=== PATIENT | male | born 1955 | race Hispanic/Latino ===

== ENCOUNTER 2024-02-17 21:41 | Observation (INO) | payer OTHER ==
[~2024-02-17] VITALS: Ht 180.3 cm; Wt 84.6 kg
[2024-02-17 23:12] LABS: BASOPHILS # (AUTO) 0.01 K/uL (0.00-0.20); BASOPHILS % (AUTO) 0.2 % (0.0-5.0); EOSINOPHILS # (AUTO) 0.24 K/uL (0.00-0.70); EOSINOPHILS % (AUTO) 3.9 % (0.0-8.0); HEMATOCRIT 39.5 % (42-54); IMMATURE GRANULOCYTE ABSOLUTE 0.01 K/uL (0-1); LYMPHOCYTES # (AUTO) 2.2 K/uL (1.0-4.8); LYMPHOCYTES % (AUTO) 36.3 % (21.0-51.0); MEAN CORPUSCULAR HEMOGLOBIN 30.6 pg (27.0-33.0); MEAN CORPUSCULAR HGB CONC 34.7 g/dL (32.0-36.0); MEAN CORPUSCULAR VOLUME 88.2 fL (79-99); MONOCYTES # (AUTO) 0.7 K/uL (0.1-1.0); MONOCYTES % (AUTO) 10.6 % (3.0-13.0); NEUTROPHILS % (AUTO) 48.8 % (40.0-77.0); PLATELET COUNT (AUTO) 261 K/uL (130-400); RED BLOOD CELL COUNT(AUTO) 4.48 MIL/uL (4.50-6.20); RED CELL DISTRIBUTION WIDTH 12.4 % (11.0-15.5); WHITE BLOOD COUNT (AUTO) 6.2 K/uL (4.8-10.8)
--- NOTE | 2024-02-17 23:24 | ERN ---
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 Apparently he was in [place] and as he was driving he looked up at the light in the truck after which he began developing severe dizziness to the point of near syncope that lasted for the next few days. He called his and with the extreme difficulty some home [address] [place] again. He was still can continuing to have symptoms and hence he came to the ER for further evaluation Temperature 98 pulse 79 respirations 20 blood pressure 150/79 with a pulse oximetry of 98% on room air Allergies: Coded Allergies: No Known Allergies (Unverified Allergy, Unknown, 02/17/24) Past Medical History Past Medical History: No Pertinent History Surgical History: None Social History: Smokers, ETOH RN Note Reviewed/Agreed w/PFSH: Yes Review of System Dictation Constitutional: Negative for fever,chills, and weight loss Eyes: Negative for injury, pain,redness, and discharge ENT: Negative for injury,pain or swelling Cardiovascular: Negative for chest pain, palpitations, and edema severe dizziness and near-syncope Respiratory: Negative for shortness of breath, cough, and wheezing, Abdomen/GI: Negative for abdominal pain, nausea, vomiting, diarrhea, and constipation Back: Negative for injury and pain : Negative for injury, bleeding and discharge MS/Extremity: Negative for injury and deformity Skin: Negative for rash, and discoloration Neuro: Negative for headache, weakness, numbness, tingling, and seizure Psych: Negative for suicide ideation, homicidal ideation, and hallucinations Initial Vital Sign VS Vital Signs Date Time Temp Pulse Resp B/P (MAP) Pulse Ox O2 Delivery O2 Flow Rate FiO2 02/17/24 21:43 98.1 79 20 150/79 98 Room Air 02/17/24 22:23 0 21 Physical Exam Dictation General: awake, alert, NAD thin male not in any distress Head/Face: Normocephalic, atraumatic Eyes: PERRL, EOMI, vision at baseline ENT: oral cavity clear, TMs clear, no signs of infection Neck: Trachea midline, supple, no nuchal rigidity I did not appreciate any carotid murmurs or bruits Cardiovascular: RRR, normal S1/S2, No MRGs, no JVD Respiratory: CTAB, no respiratory distress, No rales or wheezes Abdomen: Soft, non-tender, non-distended, normal bowel sounds, no guarding or rebound. Skin: Warm, dry, normal turgor, no rash MS/Extremity: Pulses equal, no cyanosis, neurovascular intact, FROM Neuro: COAx4, GCS 15, strength 5/5, CN 2-12 intact, normal cerebellar exam, normal gait, Psych: Normal behavior, mood, and affect normal Extremities-trace edema without any palpable cords, Homans sign is negative Results (Laboratory/Radiology) Laboratory/Radiology Laboratory Tests Test 02/17/24 23:04 02/18/24 04:45 White Blood Count 6.2 K/uL (4.8-10.8) Red Blood Count 4.48 MIL/uL (4.50-6.20) L Hemoglobin 13.7 g/dL (14.0-18.0) L Hematocrit 39.5 % (42-54) L Mean Corpuscular Volume 88.2 fL (79-99) Mean Corpuscular Hemoglobin 30.6 pg (27.0-33.0) Mean Corpuscular Hemoglobin Concent 34.7 g/dL (32.0-36.0) Red Cell Distribution Width 12.4 % (11.0-15.5) Platelet Count 261 K/uL (130-400) Mean Platelet Volume 8.9 fL (7.5-10.5) Immature Granulocyte % (Auto) 0.2 % (0-1) Neutrophils (%) (Auto) 48.8 % (40.0-77.0) Lymphocytes (%) (Auto) 36.3 % (21.0-51.0) Monocytes (%) (Auto) 10.6 % (3.0-13.0) Eosinophils (%) (Auto) 3.9 % (0.0-8.0) Basophils (%) (Auto) 0.2 % (0.0-5.0) Neutrophils # (Auto) 3.0 K/uL (1.8-7.7) Lymphocytes # (Auto) 2.2 K/uL (1.0-4.8) Monocytes # (Auto) 0.7 K/uL (0.1-1.0) Eosinophils # (Auto) 0.24 K/uL (0.00-0.70) Basophils # (Auto) 0.01 K/uL (0.00-0.20) Absolute Immature Granulocyte (auto 0.01 K/uL (0-1) Nucleated Red Blood Cells 0.0 % (0.0-0.19) Sodium Level 145 mmol/L (136-145) Potassium Level 3.5 mmol/L (3.5-5.1) Chloride Level 106 mmol/L (101-111) Carbon Dioxide Level 33 mmol/L (21-32) H Blood Urea Nitrogen 12 mg/dL (7-18) Creatinine 1.0 mg/dL (0.5-1.3) Glomerular Filtration Rate Calc 83 mL/min (>90) Random Glucose 105 mg/dL (70-105) Total Calcium 8.8 mg/dL (8.5-10.1) Troponin I High Sensitivity 6 ng/L (4-75) Urine Color LIGHT-YELLOW (YELLOW) Urine Appearance CLEAR (CLEAR) Urine pH 6.5 (5.0-8.0) Urine Specific Sulphur 1.015 (1.001-1.031) Urine Protein NEGATIVE mg/dL (NEGATIVE) Urine Glucose (UA) NEGATIVE mg/dL (NEGATIVE) Urine Ketones NEGATIVE mg/dL (NEGATIVE) Urine Occult Blood NEGATIVE (NEGATIVE) Urine Nitrate NEGATIVE (NEGATIVE) Urine Bilirubin NEGATIVE mg/dL (NEGATIVE) Urine Urobilinogen 0.2 mg/dL (0.2-1.0) Urine Leukocyte Esterase NEGATIVE Balwinder/uL Urine Opiates Screen NEGATIVE (NEGATIVE) Urine Barbiturates Screen NEGATIVE (NEGATIVE) Urine Phencyclidine Screen NEGATIVE (NEGATIVE) Urine Amphetamines Screen NEGATIVE (NEGATIVE) Urine Benzodiazepines Screen NEGATIVE (NEGATIVE) Urine Cocaine Screen NEGATIVE (NEGATIVE) Urine Marijuana (THC) Screen NEGATIVE (NEGATIVE) Influenza Type A Antigen Negative For Type A Influenza Type B Antigen Negative For Type B SARS-CoV-2, RNA, NAAT NEGATIVE SARS CoV-2 Labs Reviewed?: Yes CT Scan Comment: PATIENT: ARIELLE MONTOYA MR#: [id number] : 1955 SEX: M AGE: 68 LOCATION: [facility] ORDER [id number] STATUS: REG REPORT#: [id number] SERVICE REASON: Severe dizziness near syncope ORDERING PHYSICIAN: HARRISON PAIGE MD PROCEDURE: HEAD WO - CT HEAD/BRAIN W/O CONTRAST CT HEAD/BRAIN W/O CONTRAST HISTORY: Near syncope COMPARISON: None TECHNIQUE: Multiple sequential axial images of the head were obtained from the base of the skull through vertex. Patient was not given contrast through intravenous route. FINDINGS: The ventricles and extraventricular CSF spaces are dilated consistent with cerebral atrophy. Nonspecific white matter changes seen. There is no midline shift, mass effect or herniation. No acute intracranial bleed is seen. There are bilateral maxillary sinusitis with mucoperiosteal thickening. IMPRESSION: 1. No acute intracranial bleed is seen. 2. Atrophy with white matter changes. CT was performed with one or more following dose reduction techniques: automated exposure control, adjustment of the mA and kv according to patient's size, or use of a iterative reconstruction technique. DICTATED BY: QI CAPPS MD DATE: 02/17/242336 ELECTRONICALLY SIGNED BY: QI CAPPS MD DATE: 02/17/24 234 ED Course ED Course Orders Procedure Category Date Status Time Cbc With Differential LAB 02/17/24 Complete 22:45 Basic Metabolic Panel LAB 02/17/24 Complete 22:45 12 Lead Ekg Tracing- EKG 02/17/24 Logged Technical 22:45 Troponin I High LAB 02/17/24 Complete Sensitivity 22:45 Chest 1vw RAD 02/17/24 Taken 23:17 Ct Head/Brain W/O CT 02/17/24 Resulted Contrast 23:17 Admit Orders ADM 02/18/24 Transmitted 01:27 Edm Admit Bridge Order ADM 02/18/24 Transmitted 01:27 Admit Orders ADM 02/18/24 Transmitted 01:27 Urinalysis Profile LAB 02/18/24 Complete 02:14 Influenza Type A & B, LAB 02/18/24 Complete Rapid 02:14 Covid Rna Naat LAB 02/18/24 Complete 02:14 Drug Screen Urine LAB 02/18/24 Complete 02:14 Vital Signs Every 4 CPOE 02/18/24 Transmitted Hours 02:20 I&O Q Shift CPOE 02/18/24 Transmitted 02:20 Activity: Ambulate W/ CPOE 02/18/24 Transmitted Assist 02:20 Heart Healthy Diet DIET 02/18/24 Transmitted Breakfast O2 Order RT 02/18/24 Transmitted 02:20 Cbc Without LAB 02/19/24 Verified Differential 04:00 Basic Metabolic Panel LAB 02/19/24 Verified 04:00 Magnesium LAB 02/19/24 Verified 04:00 Phosphorus LAB 02/19/24 Verified 04:00 Echo 2-D Complete ECHO 02/18/24 Logged 02:20 Pantoprazole 40mg Tab PHA 02/18/24 In Process (Protonix 40mg Tab 09:00 Enoxaparin Sodium 40 PHA 02/18/24 In Process Mg/0.4 Ml (Lovenox) 09:00 Acetaminophen 325 Tab PHA 02/18/24 In Process (Tylenol 325mg Tab 02:30 Acetaminophen 650mg PHA 02/18/24 In Process Supp (Tylenol 650mg 02:30 Lactulose 20 Gm/30 Ml PHA 02/18/24 In Process Udcup (Constulose 02:30 Docusate Sodium 100 PHA 02/18/24 In Process Mg Cap (Colace 100mg 02:30 Temazepam 15 Mg Cap PHA 02/18/24 In Process (Restoril 15 Mg Cap) 02:30 Ondansetron 4mg Inj PHA 02/18/24 In Process (Zofran 4mg Inj) 02:30 Hydralazine 20mg Inj PHA 02/18/24 In Process (Apresoline 20mg In 02:30 Telemetry Monitoring CPOE 02/18/24 Transmitted 02:20 Initiate MADI 02/18/24 In Process Hyperglycemia Protoco 02:20 Insulin Regular, PHA 02/18/24 In Process Human 3ml (Humulin R 07:30 Us Carotid Duplex US 02/18/24 Taken 02:26 Orthostatic Vital CPOE 02/18/24 Transmitted Signs 04:10 Vital Signs Date Time Temp Pulse Resp B/P (MAP) Pulse Ox O2 Delivery O2 Flow Rate FiO2 02/18/24 04:28 66 18 167/90 97 Room Air* 0 02/18/24 04:28 72 17 156/87 97 Room Air* 0 02/18/24 04:27 59 18 142/82 98 Room Air* 0 02/17/24 22:23 66 18 143/76 100 Room Air* 0 02/17/24 21:43 98.1 79 20 150/79 98 Room Air We will perform diagnostic labs, advanced imaging and administer medications according to the patient's complaint. Once the results are available, will review and personally interpreted the labs to rule out any acute life- threatening emergency the trach require immediate intervention and treatment. I will then re-evaluate the patient after treatment and diagnostic exams have return to determine whether the patient requires any further testing, can safely be discharged home or need further admission to hospital for additional treatment and evaluation. Reviewed labs CBC within normal limits BNP 7 showed a bicarb of 33 BUN and creatinine are 12 and 1.0. First set of troponins is negative. I had a discussion with him and family member and went over the multiple differential diagnoses and with ongoing symptoms I would recommend admission to further evaluate his near syncopal symptoms. He was hesitant but agreed for admission. [facility] was [facility] by [facility] and nurse practitioner Valentina for admission and further management including workup for carotid disease aortic valvular disease perhaps cervical spondylosis. Medical Decision Making MDM MDM: Differential diagnosis: Volume depletion, vertebrobasilar insufficiency, B12 folate deficiency, aortic valve disease, carotid stenosis Rationale: Tests considered and ordered secondary to shared decision making include: labs, ECG and radiology Previous outside records reviewed: Old ER visits. Risk of complication and/or morbidity or mortality of patient management: None Medications-Per medication reconciliation Need for hospitalization: Patient does meet criteria for hospitalization. Need for emergency major/minor surgery: No There are no social concerns with this patient. Prescription drug management Prescriptions will include symptomatic care Patient's prior external medical records from other ER visits were reviewed by me as indicated. Prior testing and results from previous visits were reviewed. Prior tests were taken into account with medical decision making and resource utilization, independent historian/historians were used to obtain complete medical history. I independently interpreted the test that were performed, results were reviewed by me and considered findings on radiology if ordered. Medical management and examination interpretation discussions were had by me with other qualified healthcare professionals as indicated for the patient's care. Problem List Problem List: (1) Uncontrolled hypertension (2) Tobacco abuse (3) Alcohol use (4) Dizziness DX & DISP Disposition: Inpatient Decision to Admit Time: 00:03 Departure Impression: Primary Impression: Dizziness Additional Impressions: Uncontrolled hypertension, Tobacco abuse, Alcohol use Condition: Stable Additional Instructions: Patient was informed of all the diagnostic labs and procedures conducted in the emergency room today and demonstrated understanding of the results. I personally reviewed and interpreted all the diagnostic exams performed in the ER today. The patient will be admitted to the hospital for further treatment and evaluation. Disposition-admit to facility Condition-stable/guarded Course-uncertain at this time Pain status-decreased Assessment-exam unchanged Admission Certification- I certify that the patients status is appropriate and is based on my best clinical judgment and the patient's condition as documented in the medical records Referrals: SELF,REFERRAL (PCP) HARRISON PAIGE MD Feb 17, 2024 23:24
[2024-02-17 23:26] LABS: POTASSIUM 3.5 mmol/L (3.5-5.1)
--- NOTE | 2024-02-17 23:40 | HMCIMG ---
CT HEAD/BRAIN W/O CONTRAST HISTORY: Near syncope COMPARISON: None TECHNIQUE: Multiple sequential axial images of the head were obtained from the base of the skull through vertex. Patient was not given contrast through intravenous route. FINDINGS: The ventricles and extraventricular CSF spaces are dilated consistent with cerebral atrophy. Nonspecific white matter changes seen. There is no midline shift, mass effect or herniation. No acute intracranial bleed is seen. There are bilateral maxillary sinusitis with mucoperiosteal thickening. IMPRESSION: 1. No acute intracranial bleed is seen. 2. Atrophy with white matter changes. CT was performed with one or more following dose reduction techniques: automated exposure control, adjustment of the mA and kv according to patient's size, or use of a iterative reconstruction technique.
--- NOTE | 2024-02-18 01:35 | NUR ---
PATIENT REPORTS HE DOES NOT TAKE ANY PRESCRIBED MEDICATIONS
--- NOTE | 2024-02-18 02:17 | HP ---
[facility] HISTORY & PHYSICAL Date Patient Seen: Feb 18, 2024 Time of Visit: 02:17 Supervising Physician: Dr. Fermin Hammond Primary Care Physician: Has not seen a doctor for over 10 years. (Was assigned ADEOLA QuesadaSD who he will see in the future) Outpatient Specialists: None Inpatient Consults: PROBLEM LIST: Dizziness, POA Uncontrolled hypertension, POA Anxiety, POA Acute kidney injury, GFR 83, POA Anemia, POA Tobacco and alcohol abuse Noncompliance with medical fallow-ups HPI: Mr. Rubio is a 68-year-old male with a known history presented to the ED for evaluation of severe dizziness and near syncope for about 3 days. 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 He stated the symptoms occur when he looked up at the light in the truck. He called his and with the extreme difficulty. He continue to have symptoms which prompted him to come to the ED for further evaluation. Patient reports no known history of hypertension or anxiety. But has been feeling anxious today. The patient reported that he has not seen a doctor in over 10 years but was assigned one by his insurance which he we will follow up with. The patient presented to the ED with a blood pressure [address] head impression: No acute intracranial bleed. Atrophy with white matter changes. Troponin WNL. Drug screen negative. UA negative. Influenza and COVID negative. Remarkable lab results: Hemoglobin 13.7, hematocrit 39.5, RBC 4.84. Carbon dioxide 33, GFR 83. ED provider request patient be admitted with the diagnosis of dizziness, uncontrolled hypertension, tobacco, and alcohol. Patient's breathing was even and unlabored. Patient appeared anxious, but in no distress. Patient reports that he is dizzy when he tries to stand up. Orthostatics were done, lying 142/82 HR 59 bpm, sitting 167/90 HR 66 beats per minute, standing 156/87 HR72 beats per minute. Patient denies chest pain, shortness of breath, any other pain, problem or concern. I informed patient and at bedside of labs, diagnostics, and plan of care. They verbalized understanding and are in agreement with the plan. Plan and assessment are listed below. PAST MEDICAL HX: see above PAST SURGICAL HX: noncontributory SOCIAL HISTORY: + tobacco, + ETOH Denied illicit drug use Coded Allergies: No Known Allergies (Unverified Allergy, Unknown, 02/17/24) REVIEW OF SYSTEMS: 12 point ROS reviewed with patient. Pertinent positives mentioned above. Otherwise negative. PHYSICAL EXAM: GENERAL: Alert, weak, awake oriented x 3 HEENT: EOMI, Sclera non icteric, moist mucosa NECK: Supple, no JVD, trachea midline LUNGS: Clear breath sounds bilaterally. No wheezes HEART: Regular rate and rhythm. Normal S1 and S2, without murmurs ABD: Abdomen soft, nontender. Bowel sounds present EXT: No clubbing cyanosis or edema NEURO: Alert and oriented to person, follows commands. PSYCH: Anxiety Vital Signs (last 8hr) Date Time Temp Pulse Resp B/P (MAP) Pulse Ox O2 Delivery O2 Flow Rate FiO2 02/17/24 22:23 66 18 143/76 100 Room Air* 0 21 02/17/24 21:43 98.1 79 20 150/79 98 Room Air LABS: Hematology Labs: Test 02/17/24 23:04 Range/Units White Blood Count 6.2 4.8-10.8 K/uL Red Blood Count 4.48 L 4.50-6.20 MIL/uL Hemoglobin 13.7 L 14.0-18.0 g/dL Hematocrit 39.5 L 42-54 % Mean Corpuscular Volume 88.2 79-99 fL Mean Corpuscular Hemoglobin 30.6 27.0-33.0 pg Mean Corpuscular Hemoglobin Concent 34.7 32.0-36.0 g/dL Red Cell Distribution Width 12.4 11.0-15.5 % Platelet Count 261 130-400 K/uL Mean Platelet Volume 8.9 7.5-10.5 fL Immature Granulocyte % (Auto) 0.2 0-1 % Neutrophils (%) (Auto) 48.8 40.0-77.0 % Lymphocytes (%) (Auto) 36.3 21.0-51.0 % Monocytes (%) (Auto) 10.6 3.0-13.0 % Eosinophils (%) (Auto) 3.9 0.0-8.0 % Basophils (%) (Auto) 0.2 0.0-5.0 % Neutrophils # (Auto) 3.0 1.8-7.7 K/uL Lymphocytes # (Auto) 2.2 1.0-4.8 K/uL Monocytes # (Auto) 0.7 0.1-1.0 K/uL Eosinophils # (Auto) 0.24 0.00-0.70 K/uL Basophils # (Auto) 0.01 0.00-0.20 K/uL Absolute Immature Granulocyte (auto 0.01 0-1 K/uL Nucleated Red Blood Cells 0.0 0.0-0.19 % Chemistry Labs: Test 02/17/24 23:04 Range/Units Sodium Level 145 136-145 mmol/L Potassium Level 3.5 3.5-5.1 mmol/L Chloride Level 106 101-111 mmol/L Carbon Dioxide Level 33 H 21-32 mmol/L Blood Urea Nitrogen 12 7-18 mg/dL Creatinine 1.0 0.5-1.3 mg/dL Glomerular Filtration Rate Calc 83 >90 mL/min Random Glucose 105 70-105 mg/dL Total Calcium 8.8 8.5-10.1 mg/dL Troponin I High Sensitivity 6 4-75 ng/L DIAGNOSTICS / RADIOLOGY RESULTS: [ ] PLAN Admit to medical telemetry floor. EKGs and troponin series. Start lisinopril 5 mg p.o. daily. Aspirin 81 mg p.o. daily. Atorvastatin 40 mg p.o. daily. Pending carotids and echo to be done. Start meclizine 25 mg p.o. t.i.d.. Start LR at 75 mL an hour, gentle hydration. P.r.n. medications for nausea, vomiting, constipation, pain. Blood pressure checks every4 hours and as needed. Reconcile home medications once available. Glucometer checks a.c. and HS with insulin regular sliding scale. Monitor renal and liver function. Monitor electrolytes and treat accordingly. DVT and GI prophylaxis: Lovenox and Protonix. A.m. labs: CBC, BNP, Mag, phos, TSH, A1c, cholesterol, troponin, BNP Education on establishing with the provider. Education on hypertension, smoking cessation, alcohol cessation. NEURO: Minimize central acting medications as possible. Maintain fall precautions, adequate lighting during the day PULMONARY: Supplemental 02 as needed. Maintain aspiration precautions at all times CARDIOVASCULAR: Follow hemodynamics. Vital signs per facility protocol GI & NUTRITION: Continue with nutritional support. Continue stool softeners and laxatives as needed. KIDNEYS & ELECTROLYTES: Strict monitoring of intake, output and overall fluid balance. Avoid nephrotoxic medications to the extent possible. Medications to be dosed according to renal function. Monitor electrolytes and replace as needed ENDOCRINE: Maintain blood glucose between 100-180 at all times. Hypoglycemia protocol in place INFECTIOUS DISEASE: Trend temperature, WBC and procalcitonin level Follow cultures, deescalate antibiotics as soon as possible. Panculture if new onset fever ONCOLOGY/HEMATOLOGY/COAGULATION: Monitor for s/s of bleeding Monitor hemoglobin, coagulation studies as needed SKIN: Pressure ulcer prevention per facility protocol Specialty mattress ORTHO/REHAB: Continue PT/OT Prophylaxis: Continue GI and DVT prophylaxis Code Status: Full Resuscitation Disposition: JOAN BERNAL Feb 18, 2024 02:17
[2024-02-18] MEDS ORDERED: ondanSETRON 4MG INJ IVP PRN (02:30)
[2024-02-18] MEDS ORDERED: TEMAZepam 15 MG CAPSULE PO PRN (02:30)
[2024-02-18] MEDS ORDERED: doCUSate SODIUM 100 MG CAP PO PRN (02:30)
[2024-02-18] MEDS ORDERED: acetaMINOPHEN 650 MG SUPPOSITORY RC PRN (02:30)
[2024-02-18] MEDS ORDERED: acetaMINOPHEN 325 MG TAB PO PRN (02:30)
[2024-02-18] MEDS ORDERED: hydrALAZine 20MG/ML VIAL IV PRN (02:30)
[2024-02-18] MEDS ORDERED: LACTULOSE 20 GM/30 ML UDCUP PO PRN (02:30)
[2024-02-18 05:17] LABS: APPEARANCE,URINE CLEAR (CLEAR); BILIRUBIN,URINE NEGATIVE (NEGATIVE); COLOR,URINE LIGHT-YELLOW (YELLOW); GLUCOSE, URINE (UA) NEGATIVE (NEGATIVE); KETONES,URINE NEGATIVE (NEGATIVE); LEUKOCYTE ESTERASE ,URINE NEGATIVE Leu/uL (NEGATIVE); NITRATE,URINE NEGATIVE (NEGATIVE); OCCULT BLOOD,URINE NEGATIVE (NEGATIVE); PH,URINE 6.5 (5.0-8.0); PROTEIN,URINE NEGATIVE (NEGATIVE); UROBILINOGEN,URINE 0.2 mg/dL (0.2-1.0)
[2024-02-18 05:18] LABS: ADD UA MICROSCOPIC NO
[2024-02-18 05:23] LABS: SARS-CoV-2, RNA, NAAT NEGATIVE SARS CoV-2 (NEGATIVE)
[2024-02-18 05:25] LABS: AMPHET/METH SCREEN,URINE NEGATIVE (NEGATIVE); BARBITURATE SCREEN, URINE NEGATIVE (NEGATIVE); BENZODIAZEPINES SCREEN,URINE NEGATIVE (NEGATIVE); CANNABINOID SCREEN,URINE NEGATIVE (NEGATIVE); COCAINE SCREEN,URINE NEGATIVE (NEGATIVE); INFLUENZA TYPE A Negative For Type A (NEGATIVE); INFLUENZA TYPE B Negative For Type B (NEGATIVE); OPIATE SCREEN,URINE NEGATIVE (NEGATIVE); PHENCYCLIDINE SCREEN,URINE NEGATIVE (NEGATIVE)
[2024-02-18] MEDS: INSULIN humuLIN R 100 UNIT/ML 3ML SQ SCH (07:30)
[2024-02-18 08:20] LABS: BASOPHILS # (AUTO) 0.01 K/uL (0.00-0.20); BASOPHILS % (AUTO) 0.2 % (0.0-5.0); EOSINOPHILS % (AUTO) 1.7 % (0.0-8.0); HEMATOCRIT 40.4 % (42-54); IMMATURE GRANULOCYTE ABSOLUTE 0.01 K/uL (0-1); LYMPHOCYTES # (AUTO) 1.6 K/uL (1.0-4.8); LYMPHOCYTES % (AUTO) 26.5 % (21.0-51.0); MEAN CORPUSCULAR HEMOGLOBIN 30.7 pg (27.0-33.0); MEAN CORPUSCULAR HGB CONC 34.9 g/dL (32.0-36.0); MEAN CORPUSCULAR VOLUME 87.8 fL (79-99); MONOCYTES # (AUTO) 0.4 K/uL (0.1-1.0); MONOCYTES % (AUTO) 7.4 % (3.0-13.0); NEUTROPHILS # (AUTO) 3.8 K/uL (1.8-7.7); PLATELET COUNT (AUTO) 241 K/uL (130-400); RED CELL DISTRIBUTION WIDTH 12.2 % (11.0-15.5)
[2024-02-18 08:28] LABS: HEMOGLOBIN A1C 5.6 % (4.0-6.0)
[2024-02-18 08:32] LABS: CREATININE 0.9 mg/dL (0.5-1.3); POTASSIUM 4.3 mmol/L (3.5-5.1)
[2024-02-18 08:45] LABS: ALBUMIN 3.5 g/dL (3.5-5.0); BILIRUBIN,TOTAL 0.5 mg/dL (0.2-1.0); MAGNESIUM 2.1 mg/dL (1.80-2.40); PHOSPHORUS 2.9 mg/dL (2.5-4.9); THYROID STIMULATING HORMONE 3.47 uIU/mL (0.36-3.74)
[2024-02-18] MEDS: LACTATED RINGERS 1000ML 1,000 ML IV SCH (08:49)
[2024-02-18] MEDS: mecliZINE HCL 25 MG TABLET PO SCH (08:49)
[2024-02-18] MEDS: PANTOPrazole 40 MG TAB DR PO SCH (08:50)
[2024-02-18] MEDS: ASPIRIN 81 MG EC TAB PO SCH (08:50)
[2024-02-18] MEDS: LISINOPRIL 5 MG TABLET PO SCH (08:50)
[2024-02-18] MEDS: ENOXAPARIN SODIUM 40 MG/0.4 ML SYRINGE SQ SCH (08:51)
--- NOTE | 2024-02-18 08:51 | EKG ---
[facility] Test Date: 2024-02-17 Test Time: 22:59:43 Pat Name: ARIELLE MONTOYA Department: [facility] Room: ED 05 Gender: M Band Splicer: [id number] : 1955 Requested By: HARRISON PAIGE Order Number: [id number] Reading MD: Rashawn Richard Measurements Intervals Gravel Switch Rate: 68 P: 49 WY: 202 QRS: 59 QRSD: 87 T: 11 QT: 376 QTc: 400 Interpretive Statements Sinus rhythm Compared to ECG 03/03/2016 11:45:12 No significant changes Electronically Signed On 02-18-2024 19:34:16 TANDEM OPERATOR by Rashawn Richard Please click the below link to view image of tracing.
--- NOTE | 2024-02-18 09:10 | HMCIMG ---
CHEST 1VW REASON: dizziness, severe evaluate cardiomegaly COMPARISON: 03/03/2016 FINDINGS: Single view of the chest was obtained. Lungs are clear. Heart size is normal. There is no pulmonary vascular congestion. Mediastinum and bony thorax appear unremarkable. IMPRESSION: 1. Normal single view chest x-ray.
--- NOTE | 2024-02-18 10:07 | PN ---
[facility] PROGRESS NOTE Date Patient Seen: Feb 18, 2024 Time of Visit: 10:01 Supervising Physician: [Dr. Hammond] Primary Care Physician: Has not seen a doctor for over 10 years. (Was assigned OSCAR Quesada who he will see in the future) Outpatient Specialists: None Inpatient Consults: PROBLEM LIST: Near syncope, POA Uncontrolled hypertension, POA Anxiety, POA Acute kidney injury, GFR 83, POA Anemia, POA Tobacco and alcohol abuse Noncompliance Plan: Pending carotid Doppler Pending echocardiogram Continue hydration with LR at 75 mL an hour Orthostatic vitals normal COVID and flu negative Monitor blood pressure Start lisinopril 5 mg p.o. daily. Aspirin 81 mg p.o. daily. Atorvastatin 40 mg p.o. daily. Start meclizine 25 mg p.o. t.i.d.. Start LR at 75 mL an hour, gentle hydration. P.r.n. medications for nausea, vomiting, constipation, pain. Blood pressure checks every4 hours and as needed. Reconcile home medications once available. Glucometer checks a.c. and HS with insulin regular sliding scale. Monitor renal and liver function. Monitor electrolytes and treat accordingly. DVT and GI prophylaxis: Lovenox and Protonix. A.m. labs: CBC, BNP, Mag, phos, TSH, A1c, cholesterol, troponin, BNP Education on establishing with the provider. Education on hypertension, smoking cessation, alcohol cessation. INTERVAL HISTORY: [This is a 68-year-old male with a history of tobacco and alcohol use who presents to the ED for evaluation of dizziness. Per ED report it was triggered while he was looking up at a light inside his truck. This provoked dizziness which lasted about three days prompting a visit to the ED. patient had elevated blood pressure reading in the ED with no diagnosis of hypertension. Has not seen a PCP in over 10 years, and is not currently taking any medication. His labs on admission were unremarkable with a WBC of 6, hemoglobin 13, platelets 261, creatinine 1.0, troponin 6, BNP 56. COVID and flu swabs were negative. TSH was 3.4, UA negative. Urine drug screen on admission was negative. His CT of the head was negative for any acute findings. EKG is read as sinus rhythm. He is pending carotid Doppler and echocardiogram. Patient is currently without dizziness but states it could trigger with standing. Orthostatic vital signs were normal.] REVIEW OF SYSTEMS: 12 point ROS reviewed with patient. Pertinent positives mentioned above. Otherwise negative. PHYSICAL EXAM: GENERAL: Alert, weak, awake oriented x 3 HEENT: EOMI, Sclera non icteric, moist mucosa NECK: Supple, no JVD, trachea midline LUNGS: Clear breath sounds bilaterally. No wheezes HEART: Regular rate and rhythm. Normal S1 and S2, without murmurs ABD: Abdomen soft, nontender. Bowel sounds present EXT: No clubbing cyanosis or edema NEURO: Alert and oriented to person, follows commands. PSYCH: Anxiety Vital Signs (last 8hr) Date Time Temp Pulse Resp B/P (MAP) Pulse Ox O2 Delivery O2 Flow Rate FiO2 02/18/24 09:20 98.8 62 18 150/83 100 Room Air* 0 02/18/24 08:00 98.8 60 20 163/102 100 Room Air* 0 02/18/24 06:05 98.4 54 17 147/81 99 Room Air* 0 02/18/24 04:28 66 18 167/90 97 Room Air* 0 02/18/24 04:28 72 17 156/87 97 Room Air* 0 02/18/24 04:27 59 18 142/82 98 Room Air* 0 21 LABS: Hematology Labs: Test 02/18/24 08:15 Range/Units White Blood Count 6.0 4.8-10.8 K/uL Red Blood Count 4.60 4.50-6.20 MIL/uL Hemoglobin 14.1 14.0-18.0 g/dL Hematocrit 40.4 L 42-54 % Mean Corpuscular Volume 87.8 79-99 fL Mean Corpuscular Hemoglobin 30.7 27.0-33.0 pg Mean Corpuscular Hemoglobin Concent 34.9 32.0-36.0 g/dL Red Cell Distribution Width 12.2 11.0-15.5 % Platelet Count 241 130-400 K/uL Mean Platelet Volume 9.0 7.5-10.5 fL Immature Granulocyte % (Auto) 0.2 0-1 % Neutrophils (%) (Auto) 64.0 40.0-77.0 % Lymphocytes (%) (Auto) 26.5 21.0-51.0 % Monocytes (%) (Auto) 7.4 3.0-13.0 % Eosinophils (%) (Auto) 1.7 0.0-8.0 % Basophils (%) (Auto) 0.2 0.0-5.0 % Neutrophils # (Auto) 3.8 1.8-7.7 K/uL Lymphocytes # (Auto) 1.6 1.0-4.8 K/uL Monocytes # (Auto) 0.4 0.1-1.0 K/uL Eosinophils # (Auto) 0.10 0.00-0.70 K/uL Basophils # (Auto) 0.01 0.00-0.20 K/uL Absolute Immature Granulocyte (auto 0.01 0-1 K/uL Nucleated Red Blood Cells 0.0 0.0-0.19 % Chemistry Labs: Test 02/18/24 08:15 Range/Units Sodium Level 144 136-145 mmol/L Potassium Level 4.3 3.5-5.1 mmol/L Chloride Level 106 101-111 mmol/L Carbon Dioxide Level 30 21-32 mmol/L Blood Urea Nitrogen 9 7-18 mg/dL Creatinine 0.9 0.5-1.3 mg/dL Glomerular Filtration Rate Calc 94 >90 mL/min Random Glucose 103 70-105 mg/dL Hemoglobin A1c 5.6 4.0-6.0 % Estimated Average Glucose (eAG) 114 70-126 mg/dL Total Calcium 8.7 8.5-10.1 mg/dL Phosphorus Level 2.9 2.5-4.9 mg/dL Magnesium Level 2.10 1.80-2.40 mg/dL Total Bilirubin 0.5 0.2-1.0 mg/dL Aspartate Amino Transf (AST/SGOT) 18 10-37 U/L Alanine Aminotransferase (ALT/SGPT) 29 12-78 U/L Alkaline Phosphatase 72 50-136 U/L Troponin I High Sensitivity 6 4-75 ng/L B-Type Natriuretic Peptide 56 0-100 pg/mL Total Protein 7.0 6.0-8.3 g/dL Albumin 3.5 3.5-5.0 g/dL Cholesterol Level 204 H <200 mg/dL Thyroid Stimulating Hormone (TSH) 3.47 0.36-3.74 uIU/mL DIAGNOSTICS / RADIOLOGY RESULTS: CT HEAD/BRAIN W/O CONTRAST HISTORY: Near syncope COMPARISON: None TECHNIQUE: Multiple sequential axial images of the head were obtained from the base of the skull through vertex. Patient was not given contrast through intravenous route. FINDINGS: The ventricles and extraventricular CSF spaces are dilated consistent with cerebral atrophy. Nonspecific white matter changes seen. There is no midline shift, mass effect or herniation. No acute intracranial bleed is seen. There are bilateral maxillary sinusitis with mucoperiosteal thickening. IMPRESSION: 1. No acute intracranial bleed is seen. 2. Atrophy with white matter changes. PLAN NEURO: Minimize central acting medications as possible. Maintain fall precautions, adequate lighting during the day PULMONARY: Supplemental 02 as needed. Maintain aspiration precautions at all times CARDIOVASCULAR: Follow hemodynamics. Vital signs per facility protocol GI & NUTRITION: Continue with nutritional support. Continue stool softeners and laxatives as needed. KIDNEYS & ELECTROLYTES: Strict monitoring of intake, output and overall fluid balance. Avoid nephrotoxic medications to the extent possible. Medications to be dosed according to renal function. Monitor electrolytes and replace as needed ENDOCRINE: Maintain blood glucose between 100-180 at all times. Hypoglycemia protocol in place INFECTIOUS DISEASE: Trend temperature, WBC and procalcitonin level Follow cultures, deescalate antibiotics as soon as possible. Panculture if new onset fever ONCOLOGY/HEMATOLOGY/COAGULATION: Monitor for s/s of bleeding Monitor hemoglobin, coagulation studies as needed SKIN: Pressure ulcer prevention per facility protocol Specialty mattress ORTHO/REHAB: Continue PT/OT Prophylaxis: Continue GI and DVT prophylaxis Code Status: Full Resuscitation Disposition: ROSLYN HENDRICKSON Feb 18, 2024 10:07
--- NOTE | 2024-02-18 10:28 | HMCIMG ---
US CAROTID DUPLEX REASON: dizziness, near syncope TECHNIQUE: Exam was performed using spectral analysis and color flow imaging. FINDINGS: Color flow Doppler ultrasound shows normal-appearing bifurcations. There is no anatomic evidence of significant focal narrowing. Flow velocities and velocity ratios appear normal throughout. There is antegrade flow in both vertebral arteries. RIGHT CAROTID: CCA: 53 cm/sec ICA: 100 cm/sec Ratio: ICA/CCA: 0.5 ECA: 82 cm/sec Vertebral artery: 52 cm/sec LEFT CAROTID: CCA: 61 cm/sec ICA: 70 cm/sec Ratio: ICA/CCA: 0.8 ECA: 63 cm/sec Vertebral artery: 36 cm/sec IMPRESSION: Normal bilateral carotid Doppler ultrasound.
--- NOTE | 2024-02-18 15:23 | HMCSR ---
APPROVED REPORT EXAM: Two-dimensional and M-mode echocardiogram with Doppler and color Doppler. INDICATION ICD: Dizziness 2D Dimensions RVDd3.7 cmLVEF(%)56.8 (>50%)LVED Vol(simp.)105.0 mL IVSd0.7 (0.7-1.1cm)FS(%)30 %LVES Vol(simp.)33.0 mL LVDd4.4 (3.8-5.6cm)LA (2D)3.5 (1.6-4.0cm)LVEF(%, simp.)69 % PWd1.1 (0.7-1.1cm)Ao Root(2D)2.5 (2.0-3.7cm)LA ESV INDEX (4CH)25.80 mL/m2 IVSs1.1 cmLVOT diam2.5 (1.8-2.4cm) LVDs3.1 (2.5-4.0cm) PWs1.1 cm M-Mode Dimensions EPSS0.8 cm LA (MM)4.3 (1.6-4.0cm) Ao Root(MM)3.3 (2.0-3.7cm) Aortic Valve AoV VTI0.3 mAo Mean GR4.0 mmHgLVOT VTI0.20 m JOHANN (VMAX)2.8 cm2AVA (VTI) 2.8 cm2 Mitral Valve MV E Vmax54.8 cm/sDECEL Ylmi149 ms MV A Vmax63.2 cm/sP 1/2 T66 ms E/A ratio0.9MVA (PHT)3.4 cm2 TDI E/E' Medial8.3E/E' Lateral5.3 Medial E' Peak V6.60 cm/sLateral E' Peak V10.40 cm/s Pulmonary Valve PV Vmax0.9 m/s PV Peak GR3.0 mmHg Tricuspid Valve RAP (EST) 8 mmHgRVSP8.0 mmHg Left Ventricle Left ventricular cavity size is normal. Normal wall motion There is normal left ventricular wall thic kness. LVEF is 60% Indeterminate diastolic dysfunction. Right Ventricle The right ventricle is normal size. The right ventricular systolic function is normal. Atria The left atrium size is normal. The right atrium size is normal. Aortic Valve The aortic valve is normal in structure and function. No aortic regurgitation is present. There is no aortic valvular stenosis. Mitral Valve Mitral valve leaflets appear normal. There is no mitral valve regurgitation noted. There is no mitral valve stenosis. Tricuspid Valve The tricuspid valve is normal in structure and function. There is no tricuspid valve regurgitation no [place]. Pulmonic Valve The pulmonary valve is normal in structure and function. There is no pulmonic valvular regurgitation. Great Vessels The aortic root is normal in size. IVC is normal in size and collapses <50% with inspiration. Pericardium No pericardial effusion. Other Information Quality : Technically difficult study due to body habitus Conclusion LVEF is 60% Indeterminate diastolic dysfunction. There is normal left ventricular wall thickness. Left ventricular cavity size is normal. Normal wall motion No effusion Study quality was technically difficult
[2024-02-18 15:56] VITALS: BP 121/64; PULSE 51; RESP 20; TEMP 98.8
[2024-02-18 19:20] VITALS: O2SAT 99
[2024-02-18 20:00] VITALS: BP 142/73; PULSE 63; RESP 20; TEMP 97.8
[2024-02-18] MEDS: atorVAStatin 40 MG TABLET PO SCH (20:52)
[2024-02-19] VITALS: BP 130/85; PULSE 75; RESP 22; TEMP 98.7
[2024-02-19 00:20] VITALS: BP_SYST 142; BP_SYST 151; BP_DIAS 57; BP_DIAS 76; BP_DIAS 79; PULSE 54; RESP 19; TEMP 97.7
[2024-02-19 04:00] VITALS: BP 95/58; PULSE 54; RESP 18; TEMP 98
[2024-02-19 05:41] LABS: HEMATOCRIT 37.5 % (42-54); MEAN CORPUSCULAR HEMOGLOBIN 30.5 pg (27.0-33.0); MEAN CORPUSCULAR HGB CONC 34.1 g/dL (32.0-36.0); MEAN CORPUSCULAR VOLUME 89.3 fL (79-99); RED BLOOD CELL COUNT(AUTO) 4.2 MIL/uL (4.50-6.20); RED CELL DISTRIBUTION WIDTH 12.3 % (11.0-15.5); WHITE BLOOD COUNT (AUTO) 5.6 K/uL (4.8-10.8)
[2024-02-19 06:16] LABS: CREATININE 0.9 mg/dL (0.5-1.3); PHOSPHORUS 3.6 mg/dL (2.5-4.9); POTASSIUM 3.5 mmol/L (3.5-5.1)
[2024-02-19 08:00] VITALS: BP 118/75; PULSE 54; RESP 17; TEMP 97.9; O2SAT 100
[2024-02-19 08:07] VITALS: BP 118/75; PULSE 54; RESP 17; TEMP 97.9
[2024-02-19 11:39] VITALS: BP 148/66; PULSE 73; RESP 17; TEMP 98.1
[2024-02-19] MEDS ORDERED: MECL-226 PO (16:10)
--- NOTE | 2024-02-19 16:10 | DS ---
[facility] DISCHARGE SUMMARY Date Patient Seen: Feb 19, 2024 Time of Visit: 16:09 Supervising Physician: [Dr. Hammond] Primary Care Physician: Has not seen a doctor for over 10 years. (Was assigned Dr. Justin Ivey [facility] who he will see in the future) Outpatient Specialists: None Inpatient Consults: PROBLEM LIST: Vertigo Near syncope, POA Orthostasis Uncontrolled hypertension, POA Anxiety, POA Acute kidney injury, GFR 83, POA Anemia, POA Tobacco and alcohol abuse Noncompliance Plan: Start meclizine 25 mg p.o. t.i.d.. Education on establishing with the provider. Education on hypertension, smoking cessation, alcohol cessation. HOSPITAL COURSE: HPI (per admitting provider) Mr. Rubio is a 68-year-old male with a known history presented to the ED for evaluation of severe dizziness and near syncope for about 3 days. 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 He stated the symptoms occur when he looked up at the light in the truck. He called his and with the extreme difficulty. He continue to have symptoms which prompted him to come to the ED for further evaluation. Patient reports no known history of hypertension or anxiety. But has been feeling anxious today. The patient reported that he has not seen a doctor in over 10 ye ars but was assigned one by his insurance which he we will follow up with. The patient presented to the ED with a blood pressure [address] head impression: No acute intracranial bleed. Atrophy with white matter changes. Troponin WNL. Drug screen negative. UA negative. Influenza and COVID negative. Remarkable lab results: Hemoglobin 13.7, hematocrit 39.5, RBC 4.84. Carbon dioxide 33, GFR 83. Patient was admitted and underwent syncope workup. His orthostatic vitals signs were normal. He underwent an echocardiogram which was structurally normal with an EF of 60%. His carotid doppler was normal without any significant stenosis. Patient admits a hx of vertigo and has been treated for the same in the past. He has a 40 pack year smoking hx and was advised to quit. He was recommended to follow up with his PCP for further evaluation and to stratify his ASCVD risk score and treat accordingly. F/U with cardiology as recommended by PCP upon discharge. The patient was treated for the following problems: ACTIVE PROBLEM LIST FOR THE HOSPITALIZATION: CHRONIC PROBLEMS: continue previous management per PCP unless otherwise indicated CLOTHER IN FINDINGS/RECOMMENDATIONS: [ ] PROCEDURES: carotid doppler IMPRESSION: Normal bilateral carotid Doppler ultrasound. Echocardiogram Conclusion LVEF is 60% Indeterminate diastolic dysfunction. There is normal left ventricular wall thickness. Left ventricular cavity size is normal. Normal wall motion No effusion Study quality was technically difficult DISCHARGE MEDICATIONS: Pt hemodynamically stable and afebrile at time of discharge. PCP notified of patients admission, hospital course and discharge. New Medications: Lisinopril (Lisinopril) 5 Mg Tablet 1 TAB PO DAILY for 30 Days, #30 TAB 0 Refills Meclizine HCl (Meclizine HCl) 12.5 Mg Tablet 1 TAB PO TID for dizziness for 10 Days, #30 TAB 0 Refills PHYSICAL EXAM: GENERAL: Alert, weak, awake oriented x 3 HEENT: EOMI, Sclera non icteric, moist mucosa NECK: Supple, no JVD, trachea midline LUNGS: Clear breath sounds bilaterally. No wheezes HEART: Regular rate and rhythm. Normal S1 and S2, without murmurs ABD: Abdomen soft, nontender. Bowel sounds present EXT: No clubbing cyanosis or edema NEURO: Alert and oriented to person, follows commands. PSYCH: Anxiety FOLLOW-UP: F/U with PCP for reevaluation. Follow PCP recommendation reguarding need for ASA statin and ASCVD risk. Start meclizine 12.5mg TID prn for vertigo. Start lisinopril, monitor BP with PCP and adjust medication as needed. RECOMMENDATIONS: See Discharge Instructions This case was seen and discussed with my supervising physician. More than 30 minutes spent on discharge process, including evaluation of the patient, discussion with nursing staff, medication reconciliation and follow-up appointments ROSLYN MCKEE Feb 19, 2024 16:10
[2024-02-19] MEDS ORDERED: LISI5TAB21 PO (16:13)
--- NOTE | 2024-02-19 17:10 | NUR ---
DC: PT DC'D HOME PER MD ORDER. RX SENT TO PHARMACY OF CHOICE. IV REMOVED, TIP INTACT. FAMILY AT BEDSIDE. PT WAS INSTRUCTED TO F/U WITH PCP IN 3-5 DAYS AND TO MONITOR HIS BLOOD SUGAR AND BLOOD PRESSURE STATED UNDERSTANDING.
== END 2024-02-19 17:50 | disposition home or self-care (01) ==
LOC: EDH 21:41 → INTOOBSV 02-18 01:27 → EDHIP 02-18 01:27 → 4DH 02-18 23:59
PROVIDERS: ADMIT Internal Medicine Pulmonary Disease; ATTEND Internal Medicine Pulmonary Disease
DX: R42 Dizziness and giddiness (principal); R55 Syncope and collapse; D64.9 Anemia, unspecified; F10.10 Alcohol abuse, uncomplicated; F41.9 Anxiety disorder, unspecified; I10 Essential (primary) hypertension; R11.2 Nausea with vomiting, unspecified; K59.00 Constipation, unspecified; N17.9 Acute kidney failure, unspecified; Z72.0 Tobacco use; Z79.82 Long term (current) use of aspirin; Z79.899 Other long term (current) drug therapy; Z91.199 Patient's noncompliance with other medical treatment and regimen due to unspecified reason; Y90.9 Presence of alcohol in blood, level not specified; Z20.822 Contact with and (suspected) exposure to COVID-19
CPT/HCPCS: 99284; 84484 ×2; 80048 ×2; 85025 ×2; 36415 ×3; 71045; 70450; 93005; 81003; 96372 ×2; 96360; 96361 ×2; 83036; 84443; 82465; 83735 ×2; 84100 ×2; 80053; 83880; 80305; 87804 ×2; 82948 ×6; 87635; 93306; 93880; 85027; G0378 ×7; J1650 ×2; 99285